=== PATIENT | male | born 1960 | race African-American/Black ===

== ENCOUNTER → 2021-08-05 | Day surgery (SDC) | payer OTHER ==
[~2021-08-05] VITALS: Ht 177.8 cm; Wt 127.3 kg
[~2021-08-05] MED LIST: ACETAMINOPHEN500 M1 PO; ALLOPURINOL 10100 MG PO; AMLODIPINE BESY10 MG PO; ASPIRIN EC81 MG PO; AVAPRO300 MG PO; CEFDINIR300 MG PO; COLACE100 MG PO; DICLOFENAC SODI75 MG PO; ELMIRON100 MG PO; MINOCYCLINE HC100 MG PO; MOTRIN600 MG PO; OXY-IR 5MG5 MG PO; PRAVASTATIN SOD20 MG PO; VITAMIN B-122500 MCG SL; VITAMIN D3125 MC2 PO
[2021-08-05 08:37] LABS: BUN/CREAT RATIO (CALC) 15.8 RATIO; CREATININE 1.14 mg/dL (0.67-1.17); POTASSIUM 4.3 mmol/L (3.5-5.1)
== END | disposition home or self-care (01) ==
LOC: FAS 07:45
PROVIDERS: Anesthesiology
DX: L72.0 Epidermal cyst (principal); I10 Essential (primary) hypertension; E78.5 Hyperlipidemia, unspecified; G47.30 Sleep apnea, unspecified; Z79.82 Long term (current) use of aspirin; Z79.899 Other long term (current) drug therapy; Z99.89 Dependence on other enabling machines and devices
CPT/HCPCS: 36415; 80048; 93005; J0690; J2250; J2704; J3010; J7120